=== PATIENT | female | born 2000 | race Two or more races ===

== ENCOUNTER 2024-07-23 13:51 | Inpatient (IN) ==
[2024-07-23] MEDS ORDERED: LIDOCAINE 1% LOCAL 20 ML VIAL INFIL PRN (13:57)
[2024-07-23] MEDS ORDERED: CALCIUM CARBONATE 500 MG CHEWABLE TAB PO PRN (13:57)
[2024-07-23] MEDS ORDERED: ACETAMINOPHEN 325 MG TAB PO PRN (13:57)
[2024-07-23] MEDS ORDERED: OXYTOCIN 30 UNITS/NSS 30 UNITS/500 ML BAG IV PRN (13:57)
[2024-07-23 16:51] LABS: Hematocrit (blood only) 42.2 % (37.0-47.0); Hemoglobin 14.3 g/dl (12.0-16.0); Mean Corpuscular Hgb Conc 33.9 g/dL (32.0-36.0); Mean Corpuscular Volume 82.7 fL (80.0-100.0); Mean Platelet Volume 11.1 fL (9.4-12.4); Platelet Count 256 K/uL (130-400); RDW Coefficient of Variation 15.4 % (11.5-14.5); RDW Standard Deviation 45.7 fL (36.4-46.3); White Blood Count 19.52 K/ul (4.8-10.8)
--- NOTE | 2024-07-23 17:09 | History & Physical Report ---
Date of Service July 23, 2024 Assessment & Plan (1) Supervision of normal first : Plan: IUP at 39-5/7-week with grossly ruptured membranes. Timing of rupture is unsure as her discharge is not changed for the last 4 days. Patient is still averse to having an IV started or blood work drawn.. We discussed the ramifications of not having blood work or an IV site. Her contractions are also only every 5 to 7 minutes which is not conducive for successful pushing stage. She has made progress since arriving from the office. IV team has now tried 3 times to get an IV started and have been unsuccessful. We did manage to get a CBC and we will send that. Will reassess her status after she has had a moment to regroup. Admission and Anticipated Discharge Date Admission Date: July 23, 2024 History of Present Illness Primary Care Provider: [facility] Patient is a 24-year-old female EDC 07/25/2024 who presents at 39-5/7 weeks with rupture of membranes. She had a mucus-like discharge 4 days ago and no further change in the discharge. This morning she began having regular contractions that were getting more intense with time she presented to the office where she was examined and found to be ruptured membranes and 5 cm dilated. She was sent to labor and delivery for further evaluation. GBS negative. Patient has a severe needle phobia and has not had any testing since her NOB labs. Gestational diabetes status and hemoglobin are unknown. Allergies Allergy/AdvReac Type Severity Reaction Status Date / Time No Known Allergies Allergy Verified 07/23/24 13:06 Home Medications Medication Instructions Recorded Confirmed Type PNV no.[id number] PO 12/08/23 07/23/24 History [ Gummies] Patient History Medical History No significant past medical history Varicella vaccination Surgical History No history of previous surgery Family History Denies family history of Ovarian cancer Breast cancer Colorectal cancer Social History Smoking Status: Never smoker Do You Dip or Chew Tobacco: No; Hx Alcohol Use: No Hx Substance Use: No Preferred Language: [place] Communication Ability: Effective 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 Beliefs That Will Affect Care: None marital status: marital status details: Russell Chavez (26) [phone] Current Living Situation: Spouse Current Living Situation Comment: lives with spouse, dogs current occupational status: student current occupation: Grad Student [employer] Other Information That Helps Us Care for You: No Feels Safe at Home: Yes Safety Concerns: Feels Safe At This Time Review of Systems All systems reviewed & are unremarkable except as noted in HPI & below Physical Exam Constitutional: WD/WN, vitals as above Psychiatric: A+Ox3, euthymic affect Genitourinary: OB Exam Abdomen: + vertex and + regular contractions (5-7 minutes apart) Manual OB Exam: + cervical dilation 7 cm, + cervical effacement 100% and + station -1 OB Exam Monitor Tracing: + external FHT monitor used, + external uterine monitor used and + normal FHT variability Grossly ruptured Results & Data Vital Signs (Past 12 Hours) Vital Signs Temp Pulse Resp BP 07/23/24 17:02 75 133/82 07/23/24 14:15 100 H 134/89 07/23/24 14:00 99.3 F 18 Code Status & VTE Plan VTE Prophylaxis Plan VTE Prophylaxis will be ordered: No Coding Level of Care Code 55004 INT INP/OBS CARE 140MIN (26 - PROFESSIONAL COMPONENT) Diagnoses Encounter for supervision of normal first in third trimester Z34.03 Trimester: third trimester (1) Supervision of normal first Trimester: third trimester Qualified Code(s): Z34.03 - Encounter for supervision of normal first , third trimester
--- NOTE | 2024-07-23 18:09 | Anesthesiology Consultation ---
Date of Service July 23, 2024 Assessment & Plan (1) Encounter for pre-operative examination: Chart Review Chart Review: Patient NOT seen in Pre Admission Testing Consults Requested none Additional Notes urgent need for IV access, patient severe needle phobia, after discussion with patient and Dr. Middleton electing to perform IV placement with ultrasound under sedation with inhaled nitrous History Height/Weight Height: 5 ft Weight: 91.626 kg Allergies Allergy/AdvReac Type Severity Reaction Status Date / Time No Known Allergies Allergy Verified 07/23/24 13:06 Medications Home Medications Medication Instructions Recorded Confirmed Last Taken PNV no.[id number] PO 12/08/23 07/23/24 Unknown [ Gummies] Past Medical History Medical History Varicella vaccination Past Family History Family History Denies family history of Ovarian cancer Breast cancer Colorectal cancer Past Surgical History Surgical History No history of previous surgery Social History Smoking Status: Never smoker Do You Dip or Chew Tobacco: No Hx Alcohol Use: No Hx Substance Use: No Physical Exam Vital Signs Last Vital Signs Temp 98.8 F 07/23/24 17:04 Pulse 75 07/23/24 17:02 Resp 18 07/23/24 17:04 BP 133/82 07/23/24 17:02 Testing Laboratory Results 07/23/24 16:39
[2024-07-23] MEDS: miSOPROStoL 25 MCG TAB PO SCH (20:36)
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
[2024-07-23] MEDS: LACTATED RINGER'S 1,000 ML IV PRN (23:23)
[2024-07-23] MEDS: LIDOCAINE/PRILOCAINE 2.5% EA CRM EXT STA (23:23)
[2024-07-24] MEDS: OXYTOCIN 30 UNITS/NSS 30 UNITS/500 ML BAG IV PRN (00:45)
[2024-07-24] MEDS ORDERED: ACETAMINOPHEN 325 MG TAB PO PRN (03:31)
[2024-07-24] MEDS ORDERED: OXYTOCIN 30 UNITS/NSS 30 UNITS/500 ML BAG IV PRN (03:31)
[2024-07-24] MEDS ORDERED: oxyCODONE/ACETAMINOPHEN 5mg/325mg TAB PO PRN (03:31)
[2024-07-24] MEDS ORDERED: HYDROCORTISONE ACETATE 25 MG SUPP PR PRN (03:31)
[2024-07-24] MEDS ORDERED: IBUPROFEN 600 MG TAB PO PRN (03:31)
--- NOTE | 2024-07-24 03:38 | Delivery Summary ---
Vaginal Delivery Summary Date of Service July 24, 2024 Vaginal Delivery Summary [facility] Patient is a 24-year-old female EDC 07/25/2024 who presents with history of possible rupture of membranes 3 days ago. She presented to the office with complaint of regular contractions. And membranes were noted to be ruptured at the time of that exam. She was sent to labor and delivery for labor management. Contractions became more infrequent and because IV access was difficult, she was given 1 dose of oral Cytotec. An IV site was then obtained, and Pitocin augmentation of her labor was begun as her contractions still were not regular. She progressed to full dilation and pushed effectively over intact perineum for delivery of a viable male . After the head was delivered, a loose nuchal cord was reduced. The shoulders were delivered without maternal effort. Rest of the infant delivered with ease. He was placed on the mother's abdomen for further attention and drying. He was vigorous crying and moving all 4 limbs. After 1 minute, the cord was clamped and cut. After cord blood was obtained, the placenta was expressed intact with a three-vessel cord. bleeding was controlled with Pitocin and fundal massage. Perineum was noted to be intact except for a superficial laceration on the right labia minora. It was not bleeding and therefore not repaired. QBL was 203 mL. Mother and were doing well after delivery. [facility] [place] Vaginal Delivery Charge Delivery Type Details: [facility]
[2024-07-24] MEDS ORDERED: IBUPROFEN 200 MG/10 ML UDC PO PRN (04:04)
[2024-07-24] MEDS: ACETAMINOPHEN SUSP 325 MG/10.15 ML UDC PO PRN (04:14)
[2024-07-24 07:50] VITALS: RESP 16
[2024-07-24] MEDS ORDERED: DOCUSATE SODIUM 100 MG CAP PO SCH (08:00)
[2024-07-24] MEDS ORDERED: Nursing to Pharmacy Communication SCH (08:45)
[2024-07-24] MEDS: PRENATAL VITAMIN 1 TAB PO SCH (09:50)
[2024-07-24] MEDS: DOCUSATE SODIUM SYRUP 100 MG/10 ML UDC PO SCH (09:53)
[2024-07-24] MEDS: DIPHTHER/TETAN/PERTUS Vaccine (Tdap, Adol/Adult) 0.5mL IM ONE (09:54)
[2024-07-24] MEDS: BENZOCAINE 20% SPRY 85 APPLN/85 GM CAN EXT PRN (10:09)
--- NOTE | 2024-07-24 13:16 | Anesthesiology Progress Note ---
Date of Service July 24, 2024 Anesthesia Post Procedure Vital Signs Vital Signs: Temp Pulse Pulse Resp BP BP Pulse Ox 07/24/24 11:37 98.1 F 75 16 112/71 98 07/24/24 07:29 97.7 F 82 16 116/76 99 07/24/24 05:25 99.0 F 20 07/24/24 05:25 96 H 125/61 07/24/24 05:10 89 131/65 07/24/24 04:55 18 07/24/24 04:55 85 131/72 07/24/24 04:40 93 H 126/70 07/24/24 04:25 93 H 135/75 07/24/24 04:10 82 142/67 H 07/24/24 03:55 18 07/24/24 03:55 96 H 127/60 07/24/24 03:40 18 07/24/24 03:40 93 H 134/76 07/24/24 03:25 20 07/24/24 03:24 96 H 137/79 07/24/24 02:16 83 148/89 H 07/24/24 02:10 99.1 F 07/24/24 00:45 99.0 F 07/23/24 22:44 99.3 F 78 20 134/81 07/23/24 20:39 98.8 F 83 130/89 07/23/24 17:04 18 07/23/24 17:04 98.8 F 18 07/23/24 17:02 75 133/82 07/23/24 14:15 100 H 134/89 07/23/24 14:00 99.3 F 18 O2 Del Method 07/24/24 11:37 Room Air 07/24/24 07:29 Room Air 07/24/24 05:25 07/24/24 05:25 07/24/24 05:10 07/24/24 04:55 07/24/24 04:55 07/24/24 04:40 07/24/24 04:25 07/24/24 04:10 07/24/24 03:55 07/24/24 03:55 07/24/24 03:40 07/24/24 03:40 07/24/24 03:25 07/24/24 03:24 07/24/24 02:16 07/24/24 02:10 07/24/24 00:45 07/23/24 22:44 07/23/24 20:39 07/23/24 17:04 07/23/24 17:04 07/23/24 17:02 07/23/24 14:15 07/23/24 14:00 Pain Intensity Perineal: Pain Intensity: 4 Transfer of Care Handoff Completed per policy Notes Mental Status: alert / awake / arousable and participated in evaluation Patient Amnestic to Procedure: Yes Nausea / Vomiting: adequately controlled Pain: adequately controlled Airway Patency, RR, SpO2: stable & adequate BP & HR: stable & adequate Hydration State: stable & adequate Anesthetic Complications: no major complications apparent and Pt Satisfied with anesthetic care
[2024-07-25 03:13] VITALS: O2SAT 96
--- NOTE | 2024-07-25 08:59 | Obstetrical Progress Note ---
Date of Service July 25, 2024 Assessment & Plan (1) Supervision of normal first : PPD#1 doing well. Desires DC home. Reviewed instructions, will follow up in office 6w. Trimester: third trimester Qualified Code(s): Z34.03 - Encounter for supervision of normal first , third trimester Subjective Ambulation: ambulating normally Voiding: no voiding problems Diet Tolerance:: regular diet Lochia:: Moderate Review of Systems All systems reviewed & are unremarkable except as noted in HPI & below Physical Exam Constitutional WD/WN, vitals as above no acute distress Respiratory normal respiratory effort Cardiovascular Rate/Rhythm: regular rate and regular rhythm Gastrointestinal (Abdomen) Inspection/Auscultation: abdomen normal to inspection; abdomen not distended Percussion/Palpation: abdomen soft Genitourinary OB Exam Abdomen: + fundal height Fundus: + firm; not tender Results & Data Vital Signs (Past 12 Hours) Vital Signs Temp Pulse Resp BP Pulse Ox O2 Del Method 07/25/24 03:12 36.9 C 73 16 120/69 96 Room Air 07/25/24 00:00 37.0 C 77 16 126/76 Room Air
[2024-07-25 09:21] VITALS: BP 111/76; TEMP 98.1
[2024-07-25 16:35] VITALS: PULSE 73
[2024-07-25] MEDS ORDERED: bisacodyL 5 MG TABEC PO SCH (20:00)
[2024-07-26] MEDS ORDERED: bisacodyL 10 MG SUPP PR PRN (03:31)
== END 2024-07-25 16:25 | disposition home or self-care (01) | DRG 807 ==
LOC: 4S1 13:51 → 4E2 07-24 05:54